=== PATIENT | female | born 1975 | race Caucasian/White ===

== ENCOUNTER 2017-09-23 13:33 | Emergency (ER) | payer BC ==
[2017-09-23 13:40] VITALS: BP 155/73; BMI 33.8
--- NOTE | 2017-09-23 16:37 | DR.GENAD ---
HPI - PCP Primary Care Physician: CORNELIA SANCHEZ - HPI Comment HPI Comment: HISTORU BELOW. - Complaint/Symptoms Chief Complaint Doctors Comments: COUGH, CONGESTION AND CHEST PAIN FOR SEVERAL WEEKS. PATIENT DIAGNOSE WITH MYCOPLASMA INFECTION. TOOK MEDS BUT STILL COUGHING AND FEEL SICK. NO FEVER. COUGH CAUSING CHEST WALL PAIN. Chief Complaint:: LETHARGY, COUGH, SOB, PALPITATION Self Treatment fo Chief Complaint: ROCEPHIN, ZPACK, PREDNISONE - Nurses notes reviewed Nurses Notes Review: Yes - Source History Provided: Patient - Mode of Arrival Mode of Arrival: Ambulatory - Timing Onset of Chief Complaint: 09/02/17 Came on: Suddenly - Duration Duration: Constant Duration: Days - Severity Severity: Moderate PMH - PMH Past Medical History: Yes Past Medical History Comment: AFIB,PNEUMONIA Past Surgical History: Yes Surgical History: Cholecystectomy, Hysterectomy - Family History History of Family Medical Conditions: No - Social History Does patient currently use any type of tobacco product: Yes Have you used tobacco products in the last 12 months: Yes Type of Tobacco Use: Cigarettes Does any household member use tobacco: Yes Alcohol Use: Occasionally Do you use any recreational Drugs:: No Lives With: Family Lives Where: Home - infectious screening In the last 2 months have you had wt loss of >10#?: NO Have you had fever, night sweats or hemotysis?: No Have you traveled outside the country in the last 6 months?: No Isolation: Standard ROS - Review of Systems Constitutional: No Symptoms Reported, Weakness, Fatigue. negative: Chills, Fever Eyes: No Symptoms Reported ENTM: Nose Discharge, Nose Congestion, Throat Pain. negative: Ear Pain Respiratoy: Productive Cough, Non-Productive Cough. negative: Short of Breath, Wheezing Cardiovascular: Chest Pain Gastrointestinal/Abdominal: No Symptoms Reported Genitourinary: No Symptoms Reported Neurological: No Symptoms Reported Musculoskeletal: No Symptoms Reported Integumentary: No Symptoms Reported Hematologic/Lymphatic: No Symptoms Reported Endocrine: No Symptoms Reported Unable to Obtain Due To: Altered mental status PE - Vital Signs Vitals: Temperature 98.2 F Pulse Rate 87 Respiratory Rate 20 Blood Pressure 155/73 O2 Sat by Pulse Oximetry 99 - General Limitations: No Limitations General Appearance: Alert - Head Head Exam: Normal Inspection - Eyes Eye exam: Normal Appearance - ENT ENT Exam: Normal External Ear Exam External Ear Exam: Normal External Inspection TM/Canal Exam: Bilateral Normal Nose Exam: Normal Nose Exam Mouth Exam: Normal Inspection Throat Exam: Normal Inspection - Neck Neck Exam: Trachea Midline - Chest Chest Inspection: Symmetric Chest Wall Rise - Respiratory Respiratory Exam: Normal Lung Sounds Bilat Respiratory Exam: Bilateral Clear to Auscultation - Cardiovascular Cardiovascular Exam: Regular Rate, Normal Rhythm, Normal Heart Sounds - Abdominal Exam Abdominal Exam: Normal Bowel Sounds, Soft. negative: Tenderness - Extremities Extremities Exam: Normal Inspection - Back Back Exam: Normal Inspection - Neurologic Neurological Exam: Alert, Oriented X3 - Psychiatric Psychiatric Exam: Normal Affect, Normal Mood - Skin Skin Exam: Normal Color MDM - Additional Information Additional Information Obtained From: Family - Differential Diagnosis Differential Diagnosis: PNEUMONIA, BRONCHITIS, MYCOPLAMA INFECTION, CHEST WALL PAIN Course - Treatment Treatment: SEE ORDERS. - Education/Counseling Education/Counseling: Patient, Education Educated On: Treatment, Diagnosis, Needs for Follow Up ROR - Labs Reviewed Laboratory Results Reviewed?: Yes Result Diagrams: 09/23/17 16:28 09/23/17 16:28 Laboratory: 09/23/17 16:20 Throat Throat Culture - Preliminary WBC 10.9 X10^3/uL (3.6-10.0) H 09/23/17 16:28 RBC 5.00 X10^6/uL (3.5-5.4) 09/23/17 16:28 Hgb 15.3 g/dL (12.0-16.0) 09/23/17 16:28 Hct 44.5 % (36.0-47.0) 09/23/17 16:28 MCV 89.0 fL (80.0-100.0) 09/23/17 16:28 MCH 30.6 pg (27.0-34.0) 09/23/17 16:28 MCHC 34.4 g/dL (33.0-35.0) 09/23/17 16:28 RDW 12.9 % (11.6-16.5) 09/23/17 16:28 Plt Count 219 X10^3/uL (150.0-450.0) 09/23/17 16:28 MPV 10.0 fL (7.4-11.0) 09/23/17 16:28 Neut % 64.8 % (42.0-75.0) 09/23/17 16:28 Lymph % 24.5 % (21.0-51.0) 09/23/17 16:28 [place] % 6.2 % (0.0-13.0) 09/23/17 16:28 Eos % 3.9 % (0.9-2.9) H 09/23/17 16:28 Baso % 0.6 % (0.2-1.0) 09/23/17 16:28 Neut # 7.0 x10^3/uL (2.2-4.8) H 09/23/17 16:28 Lymph # 2.7 X10^3/uL (1.3-2.9) 09/23/17 16:28 [place] # 0.7 x10^3/uL (0.3-0.8) 09/23/17 16:28 Eos # 0.4 x10^3/uL (0.0-0.2) H 09/23/17 16:28 Baso # 0.1 X10^3/uL (0.0-0.1) 09/23/17 16:28 Absolute Nucleated RBC 0.1 /100WBC 09/23/17 16:28 Sodium 141 mmol/L (136-145) 09/23/17 16:28 Corrected Sodium 141 mmol/L (136-145) 09/23/17 16:28 Potassium 3.8 mmol/L (3.5-5.1) 09/23/17 16:28 Chloride 106 mmol/L (98-107) 09/23/17 16:28 Carbon Dioxide 24.0 mmol/L (21-32) 09/23/17 16:28 BUN 13 mg/dL (7-18) 09/23/17 16:28 Creatinine 0.75 mg/dL (0.55-1.02) 09/23/17 16:28 Est GFR (MDRD) Af Amer > 60 (>60) 09/23/17 16:28 Est GFR (MDRD) Non-Af > 60 (>60) 09/23/17 16:28 Glucose 115 mg/dL (65-99) H 09/23/17 16:28 Calcium 8.8 mg/dL (8.5-10.1) 09/23/17 16:28 Corrected Calcium TNP 09/23/17 16:28 Total Bilirubin 0.30 mg/dL (0.2-1.0) 09/23/17 16:28 AST 47 Units/L (15-37) H 09/23/17 16:28 ALT 92 Units/L (12-78) H 09/23/17 16:28 Alkaline Phosphatase 103 Units/L (46-116) 09/23/17 16:28 Total Protein 7.2 g/dL (6.4-8.2) 09/23/17 16:28 Albumin 4.0 g/dL (3.4-5.0) 09/23/17 16:28 Globulin 3.2 g/dL (2.5-4.5) 09/23/17 16:28 Albumin/Globulin Ratio 1.3 Ratio (1.1-2.1) 09/23/17 16:28 Influenza Type A (PCR) Negative (NEGATIVE) 09/23/17 16:20 Influenza Type B (PCR) Negative (NEGATIVE) 09/23/17 16:20 Streptococcus Screen Negative (NEGATIVE) 09/23/17 16:20 - XRAY XRAY Interpreted by: Radiologist XRAY Findings: REPORT DISCUSS WITH PATIENT. - Diagnosis Discharge Problem: Acute bronchitis Qualifiers: Bronchitis organism: other organism Qualified Code(s): J20.8 - Acute bronchitis due to other specified organisms - Discharge Plan Disposition: 01 HOME, SELF-CARE Condition: Stable Prescriptions: Hydrocodone Polist/Chlorphenir [Tussionex Pennkinetic Susp] 5 ml PO Q12H PRN # 60 ml PRN Reason: Cough - Follow ups/Referrals Follow ups/Referrals: BING SAMANO [Primary Care Provider] - 3 days - Instructions Instructions: Acute Bronchitis, [id number] Additional Instructions: RETURN TO ED IF WORSE.
[2017-09-23 17:20] LABS: BASOPHILS # (AUTO) 0.1 X10^3/uL (0.0-0.1); BASOPHILS % (AUTO) 0.6 % (0.2-1.0); EOSINOPHILS # (AUTO) 0.4 x10^3/uL (0.0-0.2); EOSINOPHILS % (AUTO) 3.9 % (0.9-2.9); HEMATOCRIT 44.5 % (36.0-47.0); HEMOGLOBIN 15.3 g/dL (12.0-16.0); LYMPHOCYTES # (AUTO) 2.7 X10^3/uL (1.3-2.9); LYMPHOCYTES % (AUTO) 24.5 % (21.0-51.0); MEAN CORPUSCULAR HEMOGLOBIN 30.6 pg (27.0-34.0); MEAN CORPUSCULAR HGB CONC 34.4 g/dL (33.0-35.0); MONOCYTES # (AUTO) 0.7 x10^3/uL (0.3-0.8); MONOCYTES % (AUTO) 6.2 % (0.0-13.0); NEUTROPHILS % (AUTO) 64.8 % (42.0-75.0); PLATELET COUNT 219 X10^3/uL (150.0-450.0); RED CELL DISTRIBUTION WIDTH 12.9 % (11.6-16.5); WHITE BLOOD COUNT 10.9 X10^3/uL (3.6-10.0)
[2017-09-23 17:37] LABS: ALANINE AMINOTRANSFERASE 92 Units/L (12-78); ALKALINE PHOSPHATASE 103 Units/L (46-116); ASPARTATE AMINO TRANSFERASE 47 Units/L (15-37); BLOOD UREA NITROGEN 13 mg/dL (7-18); CHLORIDE 106 mmol/L (98-107); COR NA(FOR HYPERGLY) 141 mmol/L (136-145); CREATININE 0.75 mg/dL (0.55-1.02); SODIUM 141 mmol/L (136-145); TOTAL PROTEIN 7.2 g/dL (6.4-8.2); eGFR BLACK RACES > 60 (>60); eGFR NON BLACK RACES > 60 (>60)
[2017-09-23 17:51] LABS: CALCIUM 8.8 mg/dL (8.5-10.1)
[2017-09-23] MEDS ORDERED: TUSSIONEX PENNKINETIC SUSP PO ONE (19:24)
[2017-09-23] MEDS ORDERED: TUSSIONEX PENNKINETIC SUSP ONE (19:25)
--- NOTE | 2017-09-23 22:52 | RAD ---
History: Lethargy. Cough and shortness of breath. Chest pain. Study: Two-view chest. Comparison: None. Findings: The trachea is midline. The cardiac silhouette is within normal limits. The lungs are clear without focal consolidation, pleural effusion or pneumothorax. The bony thorax is grossly unremarkab le. Impression: No acute cardiopulmonary disease. Reported By:
== END 2017-09-23 19:32 | disposition home or self-care (01) ==
LOC: ER 13:47
DX: J20.8 Acute bronchitis due to other specified organisms (principal)
CPT/HCPCS: 36415; 71020; 80053; 85025; 87070; 87502; 87880; 99282; 99285

== ENCOUNTER 2017-11-29 10:33 | Day surgery (SDC) | payer BC ==
[2017-11-29] MEDS ORDERED: D5 LR 1000 ML 1,000 ML IV ONE (10:40)
[2017-11-29] MEDS ORDERED: DIPRIVAN VIAL 20 ML ONE (11:25)
[2017-11-29 13:30] VITALS: BP 124/73
== END 2017-11-29 12:05 | disposition home or self-care (01) ==
LOC: SURG1 10:33
PROVIDERS: ATTEND Internal Medicine Gastroenterology
PROC: 0D757ZZ Dilation of Esophagus, Via Natural or Artificial Opening (ICD-10-PCS; principal; 2017-11-29 15:45)
PROC: 0DJ08ZZ Inspection of Upper Intestinal Tract, Via Natural or Artificial Opening Endoscopic (ICD-10-PCS; principal; 2017-11-29 15:45)
PROC: 0DB88ZX Excision of Small Intestine, Via Natural or Artificial Opening Endoscopic, Diagnostic (ICD-10-PCS; principal; 2017-11-29 15:45)
PROC: 0DB68ZX Excision of Stomach, Via Natural or Artificial Opening Endoscopic, Diagnostic (ICD-10-PCS; principal; 2017-11-29 15:45)
PROC: 0DB58ZX Excision of Esophagus, Via Natural or Artificial Opening Endoscopic, Diagnostic (ICD-10-PCS; principal; 2017-11-29 15:45)
DX: R13.19 Other dysphagia (principal); R10.13 Epigastric pain; K21.9 Gastro-esophageal reflux disease without esophagitis; Z80.0 Family history of malignant neoplasm of digestive organs; K22.10 Ulcer of esophagus without bleeding; K44.9 Diaphragmatic hernia without obstruction or gangrene; K29.60 Other gastritis without bleeding; R11.0 Nausea
CPT/HCPCS: A4217; J3490; J7120